=== PATIENT | female | born 2000 | race American Indian/Alaskan Native ===

== ENCOUNTER 2022-10-30 10:23 | Emergency (ER) | payer MEDICAID, OTHER | END 2022-10-30 12:36 | disposition home or self-care (01) | LOC: JD.ED 10:23 | DX: S52.611A Displaced fracture of right ulna styloid process, initial encounter for closed fracture (principal); W22.09XA Striking against other stationary object, initial encounter | CPT/HCPCS: 73130-26-RT; 73130-RT; 99283 ==